=== PATIENT | male | born 1955 | race Caucasian/White ===

== ENCOUNTER → 2016-08-02 | Outpatient (CLI) | payer BC ==
--- NOTE | 2016-08-03 08:08 | MRI ---
HISTORY: Low back pain, radiculopathy Study: MRI lumbar spine without contrast Comparison: None Technique: Multiplanar multi-sequence MRI of the lumbar spine was obtained. Sagittal T1, sagittal T 2, and stir weighted images, axial T1, and axial T2 images were obtained. Findings: The lumbar spine demonstrates normal alignment with the expected signal characteristics of the bone marrow with the exception of degenerative endplate changes at L2-3 and L4-5. The conus of the cord t erminates normally. T12 -- L1: Noncompressive disc bulging is present. No evidence for compressive disc disease. The virgilio ral foramina are patent. The joints are normal. L1 -- L2: No evidence for compressive disc disease. The neural foramina are patent. The joints are n ormal. L2 -- L3: There is broad-based disc protrusion which effaces the thecal sac. The protrusion extends more to the left than the right where it contributes to relatively severe lateral recess and foramin al narrowing. There is also lateral recess and foraminal narrowing on the right not quite as severe. Mild facet arthropathy is present. L3 -- L4: Mild concentric disk bulging contributes along with facet arthropathy to mild lateral rece ss narrowing bilaterally. L4 -- L5: Concentric disk bulging contributes along with ligamentous hypertrophy and facet arthropat hy to a very mild spinal stenosis with mild of moderate lateral recess and foraminal narrowing bilat erally right worse than left. L5 -- S1: No evidence for compressive disc disease. The neural foramina are patent. Bilateral facet arthropathy is present. IMPRESSION: As above Reported By:
== END ==
LOC: RAD 10:55
PROVIDERS: ATTEND Internal Medicine
DX: M51.16 Intervertebral disc disorders with radiculopathy, lumbar region (principal)
CPT/HCPCS: 72148

== ENCOUNTER → 2016-09-07 | Outpatient (CLI) | payer BC ==
--- NOTE | 2016-09-07 10:12 | RAD ---
HISTORY: Cervicalgia Study: Cervical spine five view Comparison: None Findings: The prevertebral soft tissues are normal. There is slight retrolisthesis C5 on C6 and C6 on C7. The alignment is otherwise normal. The alignment is stable in flexion and extension. The posterior eleme nts are intact. Diffuse bilateral facet degenerative joint disease is present. Bilateral uncovertebr al joint degenerative joint disease is present at C5-6 and C6-7. IMPRESSION: Slight retrolisthesis C5 on C6, C6 on C7 secondary to degenerative disc disease. Stable in flexion a nd extension Bilateral uncovertebral joint degenerative joint disease C5-6, C6-7. Facet degenerative joint disease Reported By:
--- NOTE | 2016-09-07 10:26 | CT ---
HISTORY: Low back pain Study: CT lumbar spine without contrast Comparison: August 02, 2016 MRI lumbar spine Technique: Axial non contrast images with coronal and sagittal reformats. Dose reduction procedures were used with MA/kv adjusted for body size. Findings: The bones are osteopenic. The alignment is normal. The vertebral bodies are of average height. No co mpression fractures are identified. The pedicles, spinous processes, and posterior elements are inta ct as are the sacrum and SI joints. The disc levels are evaluated as follows: L1-2 level: No evidence for compressive disc disease. The neural foramina are patent. The joints are normal. L2-3 level: There is disc degeneration with vacuum phenomenon present. There is broad-based disc bul ging which effaces the thecal sac and contributes to lateral recess and 4 narrowing bilaterally. The joints are normal . L3-4 level: Broad-based disc protrusion effaces the thecal sac and contributes to lateral recess yolanda rowing bilaterally. L4-5 level: There is disc degeneration with broad-based disc bulging which effaces the thecal sac an d contributes along with mild facet arthropathy to lateral recess and foraminal narrowing bilaterall y right slightly worse than left. L5-S1 level: Broad-based disk bulging causes minimal thecal sac effacement. And contributes along wi th facet arthropathy left greater than right, to lateral recess and foraminal narrowing bilaterally. IMPRESSION: As above Reported By:
--- NOTE | 2016-09-07 10:27 | RAD ---
HISTORY: Back pain Study: Lumbar spine five view Comparison: None Findings: There is some levoscoliosis present. The alignment is otherwise normal. The alignment is stable in f lexion and extension. The vertebral bodies are of average height. Degenerative disc disease is prese nt at L2-3. The pedicles are intact. The SI joints are normal. Mild spondylosis is present. IMPRESSION: Normally aligned lumbar spine stable in flexion and extension Degenerative disc disease L2-3 Spondylosis Reported By:
--- NOTE | 2016-09-07 12:40 | MRI ---
HISTORY: Neck pain, paresthesias Study: MRI cervical spine without contrast Comparison: None Technique: Multiplanar multisequence MRI of the cervical spine was obtained utilizing standard depar tmental protocol. Findings: There is minimal retrolisthesis C5 on C6, C6 on C7 . Alignment of the cervical spine is otherwise m aintained. No abnormal signal characteristics of the bone marrow can be identified. No evidence fo r fracture or significant bone or edema can be seen. The surrounding soft tissues are unremarkable. The cervical spinal cord is normal in size and configuration and without foci of abnormal signal. C2 -- C3: No evidence for compressive disc disease. The neural foramina are patent. C3 -- C4: Mild broad-based disk bulging causes mild thecal sac effacement but no significant canal s tenosis or cord compression. There is mild foraminal narrowing on the right. The left neural foramen is patent. C4 -- C5: Mild concentric disk bulging contributes to minimal foraminal narrowing bilaterally but no significant canal stenosis or cord compression. C5 -- C6: Slight retrolisthesis C5 on C6 contributes to effacement of the thecal sac but no signific ant canal stenosis or cord compression. The neural foramen on the right is patent. There is spondyli tic foraminal narrowing on the left. C6 -- C7: Mild retrolisthesis C6 on C7 effaces the thecal sac and contributes to foraminal narrowing bilaterally. There is no significant canal stenosis or cord compression. C7 -- T1: No evidence for compressive disc disease. The neural foramina are patent. IMPRESSION: As above Reported By:
== END | disposition home or self-care (01) ==
LOC: RAD 09:26
PROVIDERS: ATTEND Neurological Surgery
DX: M51.26 Other intervertebral disc displacement, lumbar region (principal); M51.27 Other intervertebral disc displacement, lumbosacral region; M51.36 Other intervertebral disc degeneration, lumbar region; M50.21 Other cervical disc displacement, high cervical region; M50.221 Other cervical disc displacement at C4-C5 level; M47.892 Other spondylosis, cervical region
CPT/HCPCS: 72050; 72120; 72131; 72141

== ENCOUNTER → 2016-10-06 | Outpatient (CLI) | payer BC ==
--- NOTE | 2016-10-06 11:52 | CT ---
HISTORY: Neck pain Study: CT cervical spine without contrast Comparison: None Technique: Axial non contrast images with coronal and sagittal reformats. Dose reduction procedures were used with MA/kv adjusted for body size. Findings: The prevertebral soft tissues are normal. The alignment is normal. The vertebral bodies are of avera ge height. Degenerative disc disease is present at C5-6 and C6-7. The pedicles, spinous processes, a nd posterior elements are intact. Mild spondylitic foraminal narrowing is present at C5-6 on the lef t and bilaterally at C6-7. Uncovertebral joint degenerative joint disease is present at C5-6 and C6- 7 bilaterally. Facet degenerative joint disease is present bilaterally in the lower cervical spine. IMPRESSION: Degenerative disc disease C5-6, C6-7. Spondylitic foraminal narrowing C5-6 on the left and bilaterally at C6-7. Uncovertebral joint degenerative joint disease bilaterally C5-6, C6-7 Facet degenerative joint disease lower cervical spine Reported By:
== END ==
LOC: RAD 11:02
PROVIDERS: ATTEND Neurological Surgery
DX: M50.322 Other cervical disc degeneration at C5-C6 level (principal); M50.323 Other cervical disc degeneration at C6-C7 level; M47.892 Other spondylosis, cervical region
CPT/HCPCS: 72125